=== PATIENT | female | born 1945 | race Two or more races ===

== ENCOUNTER 2025-05-21 23:54 | Emergency (ER) | payer SELFPAY ==
[~2025-05-21] VITALS: Ht 144.8 cm; Wt 63.6 kg
[2025-05-21 23:58] VITALS: BP 168/55; TEMP 97.7; O2SAT 100
[2025-05-22 00:29] LABS: PLATELET COUNT (AUTO) 231 K/uL (150-450); RED BLOOD CELL COUNT(AUTO) 4.50 MIL/uL (4.00-5.20); RED CELL DISTRIBUTION WIDTH 14.3 % (11.5-14.5); WHITE BLOOD COUNT (AUTO) 5.2 K/uL (4.5-11.0)
[2025-05-22 00:32] LABS: CALCIUM, TOTAL 8.6 mg/dL (8.8-10.5); CREATININE 0.84 mg/dL (0.60-1.30); GLOMERULAR FILTR. RATE CALC > 60 mL/min (>60); GLUCOSE,RANDOM 139 mg/dL (70-110); SODIUM SERUM 137 mmol/L (136-145); UREA NITROGEN, BLOOD 24 mg/dL (7-18)
[2025-05-22 00:37] LABS: CREATINE KINASE, TOTAL ONLY 74 U/L (26-192)
[2025-05-22 00:39] LABS: TROPONIN I-HIGH SENSITIVITY 32 ng/L (<51)
[2025-05-22] MEDS: ALBUTEROL SULFATE 2.5 MG/0.5 ML NEB SOLUTION NEB ONE (03:41)
[2025-05-22] MEDS: IPRATROPIUM BROMIDE 0.5 MG/2.5 ML NEB SOLUTION NEB ONE (03:41)
[2025-05-22 03:45] VITALS: PULSE 53; RESP 18; O2SAT 98
[2025-05-22] MEDS: DEXAMETHASONE SOD PHOS 4 MG/ML 5 ML VIAL IM ONE (03:51)
== END 2025-05-22 04:14 | disposition home or self-care (01) ==
LOC: EMS 05-22 00:12
DX: J44.9 Chronic obstructive pulmonary disease, unspecified (principal); I51.9 Heart disease, unspecified; R06.02 Shortness of breath
CPT/HCPCS: 71045; 93005; 99285; 80048; 82550; 83880; 84484; 85025; 85379; 36415; 94640; 96372; J1100; J7613